=== PATIENT | male | born 1950 | race Caucasian/White ===

== ENCOUNTER 2025-07-27 08:10 | Outpatient (CLI) | payer MEDICARE, SELFPAY ==
--- NOTE | 2025-07-27 08:00 | CT_ITS ---
WS: [id number] LDCT LUNG CANCER SCREENING HISTORY: Z87.891 - Personal history of nicotine dependence TECHNIQUE: Axial imaging performed from the apices to 1 cm below the costophrenic angles. Coronal and sagittal reformats are submitted with axial MIP series. All CT scans at [facility] use at least one of these dose optimization techniques: automated exposure control; mA and/or kV adjustment per patient size (includes targeted exams where dose is matched to clinical indication); or iterative reconstruction. DLP: 97.20 mGy.cm DIvol: Mean CTDIvol: 1.10 (mGy),Mean CTDIvol: 1.10 (mGy) COMPARISON: None available. Diagnostic quality: Satisfactory Lungs: Marked centrilobular emphysema. There are numerous scattered granulomata which are calcified and benign in appearance. There is a noncalcified 11 mm nodule RIGHT lower lobe. There is subsegmental atelectasis also in the RIGHT lower lobe extending along the fissure. Associated with the atelectasis is bronchiectasis. Heart: Mild cardiomegaly.. Extensive coronary artery calcifications. Greatest within the LEFT anterior descending coronary artery. Other findings: Moderate atherosclerosis aorta. No mediastinal or hilar adenopathy. No adrenal mass. Small hiatal hernia. Thoracic curvature and degenerative disc disease. CT/CT lung screening [id number] IMPRESSION: LUNG-RADS: 4A-Probably Suspicious FOLLOW UP: PET/CT recommended OTHER FINDINGS (S MODIFIER): None.
== END 2025-07-27 08:11 | disposition home or self-care (01) ==
LOC: RAD 08:13
PROVIDERS: PCP Nurse Practitioner Family; Visit Provider Nurse Practitioner Family
DX: Z12.2 Encounter for screening for malignant neoplasm of respiratory organs (principal); Z87.891 Personal history of nicotine dependence; J43.9 Emphysema, unspecified; J98.11 Atelectasis; R91.1 Solitary pulmonary nodule; I25.84 Coronary atherosclerosis due to calcified coronary lesion; I70.0 Atherosclerosis of aorta
CPT/HCPCS: 71271